=== PATIENT | female | born 2000 | race Caucasian/White ===

== ENCOUNTER 2019-12-27 12:17 | Emergency (ER) | payer BC ==
[2019-12-27] MEDS ORDERED: LORazepam 2 MG/ML SDV IVPUSH ONE (13:05)
[2019-12-27] MEDS ORDERED: Sodium Chloride 0.9% 2.5 ML Syringe FLUSH PRN (13:05)
[2019-12-27] MEDS ORDERED: HYDROmorphone 1 MG/ML Syringe IVPUSH ONE (13:05)
[2019-12-27] MEDS ORDERED: Sodium Chloride 0.9% 10 ML Syringe FLUSH PRN (13:05)
[2019-12-27] MEDS ORDERED: Lactated Ringers 1,000 ML IV ONE ×2 (13:05→13:55)
[2019-12-27] MEDS ORDERED: Prochlorperazine 10 MG/2 ML SDV IVPUSH ONE (13:05)
--- NOTE | 2019-12-27 13:10 | EDM.PDOC ---
ED [facility] GENERAL MEDICAL PROBLEM - General Chief Complaint: Abdominal Pain Stated Complaint: ABDOMINAL PAIN Time Seen by Provider: 12/27/19 12:21 - History of Present Illness INITIAL COMMENTS - FREE TEXT/NARRATIVE: HISTORY AND PHYSICAL: History of present illness: This 27-year-old female presents emergency department complaining of abdominal pain that is in the right lower quadrant but actually diffusely throughout the whole abdomen. Most noticeable in the right lower quadrant. Mild nausea. No vomiting. No urinary symptoms. Patient reports that she drinks daily, 1/5 of fireball whiskey, also smokes 2 packs a day. She is been doing this for the last couple of years. Denies any sexual contacts. No vaginal discharge or bleeding. Rates her pain as moderate to severe. Review of systems: A 10-point review of systems, other than pertinent positives and negatives as stated per HPI, is otherwise negative. Past medical history: As per history of present illness and as reviewed below otherwise noncontributory. Surgical history: As per history of present illness and as reviewed below otherwise noncontributory. Social history: No reported history of drug or alcohol abuse. Family history: As per history of present illness and as reviewed below otherwise noncontributory. Physical exam: VITAL SIGNS: Reviewed. GENERAL: Moderate distress HEAD: No signs of head trauma. EYES: Pupils are equal. Extraocular motions intact. EARS: Hearing grossly intact. MOUTH: Oropharynx is normal. NECK: No adenopathy, no JVD. CHEST: Chest with clear breath sounds bilaterally. No wheezes, rales, or rhonchi. CARDIAC: Cardiac rate. Regular rhythm. No appreciable murmur. VASCULAR: Peripheral pulses normal and equal in all extremities. ABDOMEN: Soft, diffusely tender, no rebound or guarding, pain with percussion. MUSCULOSKELETAL: Good range of motion of all major joints. Extremities without clubbing, cyanosis or edema. NEUROLOGIC EXAM: Alert and oriented x 3. No focal sensory or motor deficits. Speech normal. Follows commands. Minimal hand tremor PSYCHIATRIC: Mood normal. SKIN: No rash or lesions. Initial Differential Diagnosis & Plan: The differential diagnosis would include appendicitis, cholecystitis, pyelonephritis, pancreatitis, mesenteric infarction, diverticulitis, small bowel obstruction, volvulus, and ACS. Suspect that this is pancreatitis. Given the focal abdominal pain I will obtain a CT abdomen pelvis to rule out appendicitis. Patient does have withdrawal symptoms if she does not drink. She has not drink since yesterday. I will draw an alcohol level and give initial dose of Ativan. High likelihood for admission. Definitive disposition and diagnosis as appropriate pending reevaluation and review of above. abdominal pain Pain Score (Numeric/FACES): 8 - Related Data Allergies Allergy/AdvReac Type Severity Reaction Status Date / Time No Known Allergies Allergy Verified 12/27/19 12:45 Home Meds: Home Meds Diclofenac Potassium [Cataflam] 50 mg PO BID #60 tab 12/27/19 [Rx] Doxycycline [Vibramycin] 100 mg PO BID 7 Days #14 tab 12/27/19 [Rx] diazePAM [Valium] 5 mg PO Q6H #31 tablet 12/27/19 [Rx] metroNIDAZOLE [Flagyl] 500 mg PO Q8H 7 Days #21 tab 12/27/19 [Rx] Past Medical History HEENT History: Reports: Hard of Hearing Social & Family History - Tobacco Use Smoking Status *Q: Current Every Day Smoker Years of Tobacco use: 2 Packs/Tins Daily: 2 - Alcohol Use Days Per Week of Alcohol Use: 7 Number of Drinks Per Day: 10 Total Drinks Per Week: 70 - Recreational Drug Use Recreational Drug Use: No ED ROS GENERAL - Review of Systems Review Of Systems: See Below (Noted) ED EXAM, GI/ABD - Physical Exam Exam: See Below (Noted) EKG INTERPRETATION EKG Interpretation Comments: 12 lead EKG interpretation Obtained: December 27, 2019 at 1340 Rhythm: Sinus Rate: 99 [place]: Normal Intervals: Normal ST/T Segments: No acute ischemic changes Interpretation: Sinus Course - Vital Signs Text/Narrative:: 13:21 Spoke to Mom with the patients permission. Mom reports a temp of 103F last night. Pt forgot to tell us this info. Pt states she has had a fever for 1-2 days between 102 and 103F 1636 The patient is found to have hydrosalpinx. I spoke to Dr. Vero Santillan, PUBLIC DEFEND[employer], and she also recommended admission. She states that the patient is refusing to be admitted that we can send her home with doxycycline and Flagyl. I have already treated the patient with ceftriaxone which she also recommended. We will also give her NSAIDs. I am also concerned that the patient will have alcohol withdrawal syndrome at home and have treated her with benzodiazepines here and will also treat her with benzodiazepines as an outpatient. I normally, as is my customary practice, give Librium however this medication is not covered by her insurance. I have switched to diazepam. I feel that 1 to 2 tablets of 5 mg diltiazem every 6 hours should be adequate. More than this I feel the patient should return to the emergency department for help with her alcohol withdrawal. I spoke to the patient at length about her disease. I have told her multiple times during this visit she would likely be admitted. She had abnormal vital signs, symptoms of early alcohol withdrawal, and concerning fever with significant pathology on her CT scan and ultrasound. I have let her know that this can at times be life-threatening. She can also have serious morbidity and mortality like intrapelvic abscess, diverting colostomy, diverting ileostomy, bacteremia, and a myriad of other complications if this is not treated correctly including but not limited to and infertility. She voices understanding of this and would still like to leave AGAINST MEDICAL ADVICE. We have offered to try to make concessions to get her admitted and she continues to refuse. My diagnostic impression 1. Hydrosalpinx/PID 2. Acute febrile illness 3. Alcoholism with alcohol dependence 4. Mild alcohol withdrawal symptoms in the emergency department Last Recorded V/S: Last Vital Signs Temp 97.2 F 12/27/19 12:41 Pulse 84 12/27/19 16:25 Resp 17 12/27/19 16:25 BP 114/74 12/27/19 16:25 Pulse Ox 98 12/27/19 16:25 - Orders/Labs/Meds Orders: Active Orders 24 hr Category Date Time Status Cardiac Monitoring [RC] . DIRECTED Care 12/27/19 13:05 Active EKG Documentation Completion [RC] STAT Care 12/27/19 13:06 Active Pulse Oximetry [RC] ASDIRECTED Care 12/27/19 13:05 Active Transvaginal Non OB [US] Stat Exams 12/27/19 15:33 Taken CULTURE BLOOD [BC] Stat Lab 12/27/19 13:28 Received CULTURE BLOOD [BC] Stat Lab 12/27/19 13:42 Received Sodium Chloride 0.9% [Saline Flush] Med 12/27/19 13:05 Active 10 ml FLUSH ASDIRECTED PRN Sodium Chloride 0.9% [Saline Flush] Med 12/27/19 13:05 Active 2.5 ml FLUSH ASDIRECTED PRN Blood Culture x2 Reflex Set [OM.PC] Stat Oth 12/27/19 13:25 Ordered Saline Lock Insert [OM.PC] Stat Ot 12/27/19 13:05 Ordered Medication Orders Sodium Chloride (Saline Flush) 10 ml FLUSH ASDIRECTED PRN PRN Reason: Keep Vein Open Last Admin: 12/27/19 13:17 Dose: 10 ml Documented by: LIA Sodium Chloride (Saline Flush) 2.5 ml FLUSH ASDIRECTED PRN PRN Reason: Keep Vein Open Last Admin: 12/27/19 13:17 Dose: 2.5 ml Documented by: LIA Labs: Laboratory Tests 12/27/19 12/27/19 12/27/19 Range/Units 12:55 12:55 12:55 WBC 12.34 H (4.0-11.0) K/uL RBC 4.72 (4.30-5.90) M/uL Hgb 14.7 (12.0-16.0) g/dL Hct 42.7 (36.0-46.0) % MCV 90.5 (80.0-98.0) fL MCH 31.1 (27.0-32.0) pg MCHC 34.4 (31.0-37.0) g/dL RDW Std Deviation 42.9 (28.0-62.0) fl RDW Coeff of Chris 13 (11.0-15.0) % Plt Count 213 (150-400) K/uL MPV 10.00 (7.40-12.00) fL Neut % (Auto) 71.7 (48.0-80.0) % Lymph % (Auto) 16.5 (16.0-40.0) % [place] % (Auto) 11.6 (0.0-15.0) % Eos % (Auto) 0.0 (0.0-7.0) % Baso % (Auto) 0.2 (0.0-1.5) % Neut # (Auto) 8.9 H (1.4-5.7) K/uL Lymph # (Auto) 2.0 (0.6-2.4) K/uL [place] # (Auto) 1.4 H (0.0-0.8) K/uL Eos # (Auto) 0.0 (0.0-0.7) K/uL Baso # (Auto) 0.0 (0.0-0.1) K/uL Nucleated RBC % 0.0 /100WBC Nucleated RBCs # 0 K/uL INR 1.03 APTT 32.2 H (18.6-31.3) SEC VBG pH 7.41 (7.31-7.41) VBG pCO2 34 L (35-45) mmHG VBG pO2 37 (30-40) mmHG VBG HCO3 22 (22-30) mEq/L VBG Total CO2 19 L (41-51) mmol/L VBG Base Excess -2.5 (-3.0-3.0) Lactate (0.20-2.00) mmol/L Sodium (136-145) mmol/L Potassium (3.5-5.1) mmol/L Chloride (98-107) mmol/L Carbon Dioxide (21.0-32.0) mmol/L BUN (7.0-18.0) mg/dL Creatinine (0.6-1.0) mg/dL Est Cr Clr Drug Dosing mL/min Estimated GFR (MDRD) ml/min Glucose (74-106) mg/dL Calcium (8.5-10.1) mg/dL Magnesium (1.8-2.4) mg/dL Total Bilirubin (0.2-1.0) mg/dL AST (15-37) IU/L ALT (14-63) IU/L Alkaline Phosphatase (46-116) U/L Total Protein (6.4-8.2) g/dL Albumin (3.4-5.0) g/dL Globulin (2.6-4.0) g/dL Albumin/Globulin Ratio (0.9-1.6) Lipase (73-393) U/L HCG, Qual (NEG) Urine Color Urine Appearance Urine pH (5.0-8.0) Ur Specific [place] (1.001-1.035) Urine Protein (NEGATIVE) mg/dL Urine Glucose (UA) (NEGATIVE) mg/dL Urine Ketones (NEGATIVE) mg/dL Urine Occult Blood (NEGATIVE) Urine Nitrite (NEGATIVE) Urine Bilirubin (NEGATIVE) Urine Urobilinogen (<2.0) EU/dL Ur Leukocyte Esterase (NEGATIVE) Ethyl Alcohol mg/dL 12/27/19 12/27/19 12/27/19 Range/Units 12:55 12:55 12:55 WBC (4.0-11.0) K/uL RBC (4.30-5.90) M/uL Hgb (12.0-16.0) g/dL Hct (36.0-46.0) % MCV (80.0-98.0) fL MCH (27.0-32.0) pg MCHC (31.0-37.0) g/dL RDW Std Deviation (28.0-62.0) fl RDW Coeff of Chris (11.0-15.0) % Plt Count (150-400) K/uL MPV (7.40-12.00) fL Neut % (Auto) (48.0-80.0) % Lymph % (Auto) (16.0-40.0) % [place] % (Auto) (0.0-15.0) % Eos % (Auto) (0.0-7.0) % Baso % (Auto) (0.0-1.5) % Neut # (Auto) (1.4-5.7) K/uL Lymph # (Auto) (0.6-2.4) K/uL [place] # (Auto) (0.0-0.8) K/uL Eos # (Auto) (0.0-0.7) K/uL Baso # (Auto) (0.0-0.1) K/uL Nucleated RBC % /100WBC Nucleated RBCs # K/uL INR APTT (18.6-31.3) SEC VBG pH (7.31-7.41) VBG pCO2 (35-45) mmHG VBG pO2 (30-40) mmHG VBG HCO3 (22-30) mEq/L VBG Total CO2 (41-51) mmol/L VBG Base Excess (-3.0-3.0) Lactate 1.0 (0.20-2.00) mmol/L Sodium 136 (136-145) mmol/L Potassium 3.6 (3.5-5.1) mmol/L Chloride 101 (98-107) mmol/L Carbon Dioxide 23.5 (21.0-32.0) mmol/L BUN 5 L (7.0-18.0) mg/dL Creatinine 0.8 (0.6-1.0) mg/dL Est Cr Clr Drug Dosing 100.94 mL/min Estimated GFR (MDRD) > 60.0 ml/min Glucose 89 (74-106) mg/dL Calcium 9.3 (8.5-10.1) mg/dL Magnesium 2.0 (1.8-2.4) mg/dL Total Bilirubin 1.2 H (0.2-1.0) mg/dL AST 14 L (15-37) IU/L ALT 35 (14-63) IU/L Alkaline Phosphatase 95 (46-116) U/L Total Protein 8.0 (6.4-8.2) g/dL Albumin 3.8 (3.4-5.0) g/dL Globulin 4.2 H (2.6-4.0) g/dL Albumin/Globulin Ratio 0.9 (0.9-1.6) Lipase 41 L (73-393) U/L HCG, Qual NEGATIVE (NEG) Urine Color Urine Appearance Urine pH (5.0-8.0) Ur Specific [place] (1.001-1.035) Urine Protein (NEGATIVE) mg/dL Urine Glucose (UA) (NEGATIVE) mg/dL Urine Ketones (NEGATIVE) mg/dL Urine Occult Blood (NEGATIVE) Urine Nitrite (NEGATIVE) Urine Bilirubin (NEGATIVE) Urine Urobilinogen (<2.0) EU/dL Ur Leukocyte Esterase (NEGATIVE) Ethyl Alcohol <3 mg/dL 12/27/19 Range/Units 16:12 WBC (4.0-11.0) K/uL RBC (4.30-5.90) M/uL Hgb (12.0-16.0) g/dL Hct (36.0-46.0) % MCV (80.0-98.0) fL MCH (27.0-32.0) pg MCHC (31.0-37.0) g/dL RDW Std Deviation (28.0-62.0) fl RDW Coeff of Chris (11.0-15.0) % Plt Count (150-400) K/uL MPV (7.40-12.00) fL Neut % (Auto) (48.0-80.0) % Lymph % (Auto) (16.0-40.0) % [place] % (Auto) (0.0-15.0) % Eos % (Auto) (0.0-7.0) % Baso % (Auto) (0.0-1.5) % Neut # (Auto) (1.4-5.7) K/uL Lymph # (Auto) (0.6-2.4) K/uL [place] # (Auto) (0.0-0.8) K/uL Eos # (Auto) (0.0-0.7) K/uL Baso # (Auto) (0.0-0.1) K/uL Nucleated RBC % /100WBC Nucleated RBCs # K/uL INR APTT (18.6-31.3) SEC VBG pH (7.31-7.41) VBG pCO2 (35-45) mmHG VBG pO2 (30-40) mmHG VBG HCO3 (22-30) mEq/L VBG Total CO2 (41-51) mmol/L VBG Base Excess (-3.0-3.0) Lactate (0.20-2.00) mmol/L Sodium (136-145) mmol/L Potassium (3.5-5.1) mmol/L Chloride (98-107) mmol/L Carbon Dioxide (21.0-32.0) mmol/L BUN (7.0-18.0) mg/dL Creatinine (0.6-1.0) mg/dL Est Cr Clr Drug Dosing mL/min Estimated GFR (MDRD) ml/min Glucose (74-106) mg/dL Calcium (8.5-10.1) mg/dL Magnesium (1.8-2.4) mg/dL Total Bilirubin (0.2-1.0) mg/dL AST (15-37) IU/L ALT (14-63) IU/L Alkaline Phosphatase (46-116) U/L Total Protein (6.4-8.2) g/dL Albumin (3.4-5.0) g/dL Globulin (2.6-4.0) g/dL Albumin/Globulin Ratio (0.9-1.6) Lipase (73-393) U/L HCG, Qual (NEG) Urine Color YELLOW Urine Appearance CLEAR Urine pH 7.0 (5.0-8.0) Ur Specific [place] 1.010 (1.001-1.035) Urine Protein NEGATIVE (NEGATIVE) mg/dL Urine Glucose (UA) NEGATIVE (NEGATIVE) mg/dL Urine Ketones NEGATIVE (NEGATIVE) mg/dL Urine Occult Blood NEGATIVE (NEGATIVE) Urine Nitrite NEGATIVE (NEGATIVE) Urine Bilirubin NEGATIVE (NEGATIVE) Urine Urobilinogen 0.2 (<2.0) EU/dL Ur Leukocyte Esterase NEGATIVE (NEGATIVE) Ethyl Alcohol mg/dL Meds: Medications Generic Name Dose Route Start Last Admin Trade Name Freq PRN Reason Stop Dose Admin Sodium Chloride 10 ml 12/27/19 13:05 12/27/19 13:17 Saline Flush FLUSH 10 ml ASDIRECTED PRN Administration Keep Vein Open Sodium Chloride 2.5 ml 12/27/19 13:05 12/27/19 13:17 Saline Flush FLUSH 2.5 ml ASDIRECTED PRN Administration Keep Vein Open Discontinued Medications Generic Name Dose Route Start Last Admin Trade Name Freq PRN Reason Stop Dose Admin Doxycycline Hyclate 200 mg 12/27/19 16:20 Vibramycin PO 12/27/19 16:21 ONETIME ONE Hydromorphone HCl 1 mg 12/27/19 13:05 12/27/19 13:13 Dilaudid IVPUSH 12/27/19 13:06 1 mg ONETIME ONE Administration Lactated Ringer's 1,000 mls @ 999 mls/hr 12/27/19 13:05 12/27/19 13:00 Ringers, Lactated IV 12/27/19 14:05 999 mls/hr .BOLUS ONE Administration Ceftriaxone Sodium 2 gm/ 100 mls @ 200 mls/hr 12/27/19 13:25 12/27/19 14:43 Sodium Chloride IV 12/27/19 13:54 Not Given STAT ONE Lactated Ringer's 1,000 mls @ 999 mls/hr 12/27/19 13:55 12/27/19 13:59 Ringers, Lactated IV 12/27/19 14:55 999 mls/hr .BOLUS ONE Administration Ceftriaxone Sodium/Dextrose 2 50 mls @ 100 mls/hr 12/27/19 14:33 12/27/19 14:42 gm/ Premix IV 12/27/19 15:02 100 mls/hr ONETIME ONE Administration Ketorolac Tromethamine 15 mg 12/27/19 16:26 Toradol IVPUSH 12/27/19 16:27 ONETIME ONE Lorazepam 2 mg 12/27/19 13:05 12/27/19 13:16 Ativan IVPUSH 12/27/19 13:06 2 mg ONETIME ONE Administration Prochlorperazine Edisylate 10 mg 12/27/19 13:05 12/27/19 13:14 Compazine IVPUSH 12/27/19 13:06 10 mg ONETIME ONE Administration Departure - Departure Time of Disposition: 16:31 (Leaving AMA. DC now ) Disposition: Against Medical Advice 07 Clinical Impression: Alcoholism, Alcohol dependence, Hydrosalpinx, Pelvic inflammatory disease (PID) - Discharge Information *PRESCRIPTION DRUG MONITORING PROGRAM REVIEWED*: Yes *COPY OF PRESCRIPTION DRUG MONITORING REPORT IN PATIENT CHERIE: Yes Prescriptions: Diclofenac Potassium [Cataflam] 50 mg PO BID #60 tab metroNIDAZOLE [Flagyl] 500 mg PO Q8H 7 Days #21 tab diazePAM [Valium] 5 mg PO Q6H #31 tablet Doxycycline [Vibramycin] 100 mg PO BID 7 Days #14 tab Instructions: Alcohol Abuse and Dependence Information, Adult, Pelvic Inflammatory Disease, [id number] Referrals: PCP,None [Primary Care Provider] - Vero Santillan MD [Physician] - Forms: ED Department Discharge Additional Instructions: The following information is given to patients seen in the emergency department who are being discharged to home. This information is to outline your options for follow-up care. We provide all patients seen in our emergency department with a follow-up referral. The need for follow-up, as well as the timing and circumstances, are variable depending upon the specifics of your emergency department visit. If you don't have a primary care physician on staff, we will provide you with a referral. We always advise you to contact your personal physician following an emergency department visit to inform them of the circumstance of the visit and for follow-up with them and/or the need for any referrals to a consulting specialist. The emergency department will also refer you to a specialist when appropriate. This referral assures that you have the opportunity for follow-up care with a s pecialist. All of these measure are taken in an effort to provide you with optimal care, which includes your follow-up. Thank you for coming to the [facility] urgency department for yo ur care today. It was Dr. Obregon's pleasure to take care of you. You have hydrosalpinx/pelvic inflammatory disease. This is a serious medical condition and you are leaving AGAINST MEDICAL ADVICE. I have let you know and you have voiced understanding that you have a serious medical condition that could result in , intra-abdominal abscess, infertility, pelvic abscess, or other serious complications. Multiple times on your stay I have let you know that you should be admitted to the hospital. You are refusing to be admitted. If you change your mind please return immediately. Please take these medications as prescribed. Although we recommend intravenous antibiotics these may help to prevent bad consequences. Please stop drinking alcohol to excess and use the Valium, a alcohol withdrawal medicine, to help prevent alcohol withdrawal symptoms which can also be serious and life-threatening. Again I urged you to return to the emergency department and be admitted to the hospital. We are always happy to see you. Under all circumstances we always encourage you to contact your private physician who remains a resource for coordinating your care. When calling for follow-up care, please make the office aware that this follow-up is from your recent emergency room visit. If for any reason you are refused follow-up, please contact the [facility] Emergency Department at and asked to speak to the emergency department charge nurse. Critical Care Note - Critical Care Note Comments: Critical Care Note: The patient presented in critical status due to severe sepsis and pelvic inflammatory disease requiring intravenous antibiotics The patient required rapid exam, decision making, and frequent re-evaluations during their time in the Emergency Department. Total Critical Care time exclusive of all other billable procedure time provided by myself 77 minutes Sepsis Event Note (ED) - Evaluation Sepsis Screening Result: No Definite Risk - Focused Exam Vital Signs: Vital Signs Temp Pulse Resp BP Pulse Ox 12/27/19 16:25 84 17 114/74 98 12/27/19 14:44 85 15 105/67 97 12/27/19 14:08 96 16 104/63 96 12/27/19 12:41 97.2 F 99 16 108/64 99 - My Orders Last 24 Hours: My Active Orders 12/27/19 13:05 Cardiac Monitoring [RC] . DIRECTED Pulse Oximetry [RC] ASDIRECTED Sodium Chloride 0.9% [Saline Flush] 10 ml FLUSH ASDIRECTED PRN Sodium Chloride 0.9% [Saline Flush] 2.5 ml FLUSH ASDIRECTED PRN Saline Lock Insert [OM.PC] Stat 12/27/19 13:06 EKG Documentation Completion [RC] STAT 12/27/19 13:25 Blood Culture x2 Reflex Set [OM.PC] Stat 12/27/19 13:28 CULTURE BLOOD [BC] Stat 12/27/19 13:42 CULTURE BLOOD [BC] Stat 12/27/19 15:33 Transvaginal Non OB [US] Stat - Assessment/Plan Last 24 Hours: My Active Orders 12/27/19 13:05 Cardiac Monitoring [RC] . DIRECTED Pulse Oximetry [RC] ASDIRECTED Sodium Chloride 0.9% [Saline Flush] 10 ml FLUSH ASDIRECTED PRN Sodium Chloride 0.9% [Saline Flush] 2.5 ml FLUSH ASDIRECTED PRN Saline Lock Insert [OM.PC] Stat 12/27/19 13:06 EKG Documentation Completion [RC] STAT 12/27/19 13:25 Blood Culture x2 Reflex Set [OM.PC] Stat 12/27/19 13:28 CULTURE BLOOD [BC] Stat 12/27/19 13:42 CULTURE BLOOD [BC] Stat 12/27/19 15:33 Transvaginal Non OB [US] Stat
[2019-12-27] MEDS ORDERED: cefTRIAXone 2 GM in Sodium Chloride 0.9% 100 ML IV ONE (13:25)
[2019-12-27 13:34] LABS: BLOOD UREA NITROGEN,BUN 5 mg/dL (7.0-18.0); CARBON DIOXIDE,CO2 23.5 mmol/L (21.0-32.0); CHLORIDE,CL 101 mmol/L (98-107); GLUCOSE RANDOM 89 mg/dL (74-106); LIPASE 41 U/L (73-393); POTASSIUM,K 3.6 mmol/L (3.5-5.1); SODIUM,NA 136 mmol/L (136-145)
[2019-12-27] MEDS ORDERED: cefTRIAXone 2 GM in Premix Bag 1 BAG IV ONE (14:33)
--- NOTE | 2019-12-27 15:31 | CT ---
CT abdomen and pelvis Technique: Multiple axial sections were obtained from above the dome of the diaphragm inferiorly through the pubic symphysis. Intravenous contrast was utilized. No oral contrast was given. Comparison: No prior abdominal imaging. Findings: Visualized lung bases show nothing acute. Liver contains no focal abnormality. Spleen appears within normal limits. Adrenal glands show no nodule. Pancreas shows no discrete abnormality. Gallbladder contains no calcified gallstones. Kidneys show symmetric contrast enhancement without hydronephrosis or mass. Aorta shows no aneurysm. No retroperitoneal adenopathy or mesenteric abnormalities are seen. No pelvic mass or adenopathy is identified. Numerous cystic lesions are seen within the right side of the pelvis most likely due to multiple cysts within and enlarged right ovary. Questionable hydrosalpinx is also noted. This abnormality measures about 7.9 cm x 4.5 cm. Appendix is seen and appears to be normal in size. No surrounding inflammatory change is seen. Impression: 1. Appearance of and enlarged right ovary with multiple cysts. Equivocal hydrosalpinx. Recommend pelvic ultrasound to further evaluate. 2. Normal sized appendix. No inflammatory change is seen. No other acute finding is seen. Diagnostic code #9 This report was dictated in MDT
[2019-12-27] MEDS ORDERED: Doxycycline 100 MG Cap PO ONE (16:20)
[2019-12-27] MEDS ORDERED: Ketorolac 15 MG/ML SDV IVPUSH ONE (16:26)
--- NOTE | 2019-12-27 17:17 | US ---
INDICATION: Pelvic pain TECHNIQUE: Ultrasound pelvis transabdominal and transvaginal for better assessment or to better visualize the endometrium. Real-time sonographic images with spectral and color Doppler imaging of the ovaries were obtained. COMPARISON: CT abdomen pelvis from earlier today FINDINGS: Uterus: 6.0 x 3.2 x 2.5 cm. Normal echotexture of the myometrium. No masses. Multiple nabothian cysts on the uterine cervix. Endometrium: Transvaginal imaging was performed to better evaluate the endometrium. 4 mm in thickness. No sign of endometrial mass or fluid. Right ovary: 2.9 x 2.4 x 2.0 cm. No ovarian mass. There is a tubular structure in the right adnexal containing heterogeneous material. Normal arterial and venous blood flow. Left ovary: 2.8 x 2.7 x 2.1 cm. There is a cyst on the left ovary measuring 1.4 cm in diameter. Normal arterial and venous blood flow. Cul-de-sac: No significant free fluid. IMPRESSION: Tubular structure in the right adnexa may represent a hydrosalpinx or pyosalpinx. Recommend gynecology consultation. No ovarian torsion. Dictated by Merary Molina MD @ Dec 27 2019 5:16PM Signed by Dr. Merary Molina @ Dec 27 2019 5:16PM
[2019-12-27] MEDS ORDERED: Iopamidol 755 MG/ML 500 ML Multipack Bottle IVPUSH STA (18:47)
[2019-12-31 12:02] LABS: C.TRACHOMATIS BY TMA Negative (Negative); N.GONORRHOEAE BY TMA Negative (Negative)
== END 2019-12-27 17:17 | disposition left against medical advice (07) ==
LOC: MW.ED 12:17
DX: N73.9 Female pelvic inflammatory disease, unspecified (principal); N70.11 Chronic salpingitis; F10.239 Alcohol dependence with withdrawal, unspecified; F17.210 Nicotine dependence, cigarettes, uncomplicated; Z79.899 Other long term (current) drug therapy
CPT/HCPCS: 36415; 74177; 76830; 80053; 80307; 81003; 82803; 83605; 83690; 83735; 84703; 85025; 85610; 85730; 87040; 87491; 87591; 93005; 96365; 96375; 99291; A9270; J0696; J0780; J1170; J1885; J2060; J7120; Q9967; 99292

== ENCOUNTER 2021-06-14 12:03 | Emergency (ER) | payer BC | END 2021-06-14 14:08 | LOC: MW.ED 12:03 | DX: T16.9XXA Foreign body in ear, unspecified ear, initial encounter (principal); Z53.21 Procedure and treatment not carried out due to patient leaving prior to being seen by health care provider ==

== ENCOUNTER 2023-05-25 14:24 | Emergency (ER) | payer BC ==
[2023-05-25] MEDS ORDERED: Sodium Chloride 0.9% 10 ML Syringe FLUSH PRN (14:59)
[2023-05-25] MEDS ORDERED: Sodium Chloride 0.9% 2.5 ML Syringe FLUSH PRN (14:59)
[2023-05-25] MEDS ORDERED: Sodium Chloride 0.9% 1,000 ML IV ONE (15:02)
[2023-05-25 15:16] LABS: APPEARANCE,URINE CLOUDY; BILIRUBIN,URINE NEGATIVE (NEGATIVE); COLOR,URINE YELLOW; GLUCOSE,URINE NEGATIVE (NEGATIVE); KETONES,URINE TRACE mg/dL (NEGATIVE); LEUKOCYTE ESTERASE,URINE SMALL (NEGATIVE); NITRITE,URINE POSITIVE (NEGATIVE); OCCULT BLOOD,URINE NEGATIVE (NEGATIVE); PROTEIN,URINE NEGATIVE (NEGATIVE)
[2023-05-25] MEDS ORDERED: Lidocaine 4% 1 each Patch TOP STA (15:19)
[2023-05-25 15:26] LABS: BASOPHILS ABSOLUTE AUTO 0.03 K/uL (0.00-0.20); BASOPHILS PERCENT AUTO 0.5 % (0.0-1.0); EOSINOPHILS ABSOLUTE AUTO 0.09 K/uL (0.00-0.45); EOSINOPHILS PERCENT AUTO 1.4 % (0.0-6.0); HEMATOCRIT 42.1 % (37.0-47.0); HEMOGLOBIN 14.6 g/dL (12.0-16.0); IMMATURE GRAN ABSOLUTE AUTO 0.01 K/uL (0.00-0.05); IMMATURE GRAN PERCENT AUTO 0.2 % (0.0-0.4); LYMPHOCYTES ABSOLUTE AUTO 3.17 K/uL (1.00-4.80); LYMPHOCYTES PERCENT AUTO 48.4 % (24.0-44.0); MEAN CORPUSCULAR HGB CONC 34.7 g/dL (32.0-36.0); MEAN CORPUSCULAR VOLUME 89.4 fL (83.0-99.0); MEAN PLATELET VOLUME 9.8 fL (9.4-12.3); MONOCYTES ABSOLUTE AUTO 0.74 K/uL (0.00-0.80); MONOCYTES PERCENT AUTO 11.3 % (0.0-8.0); NEUTROPHILS ABSOLUTE AUTO 2.51 K/uL (1.80-7.70); NEUTROPHILS PERCENT AUTO 38.2 % (41.0-71.0); PLATELET COUNT,PLT 193 K/uL (150-400); RED BLOOD CELL COUNT 4.71 M/uL (4.10-5.30); WHITE BLOOD CELL COUNT,WBC 6.55 K/uL (3.9-11.3)
[2023-05-25 15:30] LABS: BACTERIA,URINE MANY (NEGATIVE); EPITHELIAL CELLS,URINE MANY (NONE-FEW)
[2023-05-25 15:37] LABS: INR 1.02 (0.86-1.11); PTT,PARTIAL THROMBOPLSTIN TIME 27.9 SEC (23.9-30.7)
[2023-05-25] MEDS ORDERED: Ketorolac 30 MG/ML SDV IVPUSH ONE (15:37)
[2023-05-25 16:00] LABS: A/G RATIO 1.3 (0.9-1.6); ALANINE AMINOTRANSFERASE,ALT 14 IU/L (14-63); ALKALINE PHOSPHATASE 79 U/L (46-116); ASPARTATE AMNIOTRANSFERASE,AST 5 IU/L (15-37); BILIRUBIN TOTAL 0.7 mg/dL (0.2-1.0); BLOOD UREA NITROGEN,BUN 14 mg/dL (7.0-18.0); CALCIUM 9.2 mg/dL (8.5-10.1); CARBON DIOXIDE,CO2 29.1 mmol/L (21.0-32.0); CHLORIDE,CL 104 mmol/L (98-107); CREATININE 1.1 mg/dL (0.6-1.0); EST CRCL DRUG DOSING (CG) 68.69 mL/min; GLUCOSE RANDOM 83 mg/dL (74-106); LIPASE 14 U/L (16-77); MAGNESIUM 1.9 mg/dL (1.8-2.4); PROTEIN TOTAL,TP 7.2 g/dL (6.4-8.2); SODIUM,NA 140 mmol/L (136-145)
[2023-05-25 16:01] LABS: ESTIMATED GFR 72 mL/min (>60)
== END 2023-05-25 17:12 | disposition left against medical advice (07) ==
LOC: MW.ED 14:24
DX: M25.551 Pain in right hip (principal); N39.0 Urinary tract infection, site not specified; F19.10 Other psychoactive substance abuse, uncomplicated; F17.210 Nicotine dependence, cigarettes, uncomplicated
CPT/HCPCS: 36415; 80053; 81001; 81025; 83690; 83735; 84484; 85025; 85610; 85730; 87086; 93005; 96361; 96374; 99283; A9270; J1885; J3490; J7030; 87088; 87186; 93010; 99284

== ENCOUNTER 2023-07-01 01:39 | Emergency (ER) | payer BC ==
[2023-07-01] MEDS ORDERED: Naloxone 0.4 MG/ML SDV IVPUSH PRN (01:57)
[2023-07-01] MEDS ORDERED: Ondansetron 4 MG/2 ML SDV IVPUSH ONE (01:57)
[2023-07-01] MEDS ORDERED: Sodium Chloride 0.9% 10 ML Syringe FLUSH PRN (01:57)
[2023-07-01] MEDS ORDERED: Sodium Chloride 0.9% 2.5 ML Syringe FLUSH PRN (01:57)
[2023-07-01] MEDS ORDERED: Morphine 4 MG/ML Syringe IVPUSH ONE (01:57)
[2023-07-01 02:12] LABS: BASOPHILS ABSOLUTE AUTO 0.04 K/uL (0.00-0.20); BASOPHILS PERCENT AUTO 0.5 % (0.0-1.0); EOSINOPHILS ABSOLUTE AUTO 0.06 K/uL (0.00-0.45); EOSINOPHILS PERCENT AUTO 0.8 % (0.0-6.0); HEMATOCRIT 41.6 % (37.0-47.0); HEMOGLOBIN 14.4 g/dL (12.0-16.0); IMMATURE GRAN ABSOLUTE AUTO 0.01 K/uL (0.00-0.05); IMMATURE GRAN PERCENT AUTO 0.1 % (0.0-0.4); LYMPHOCYTES ABSOLUTE AUTO 3.65 K/uL (1.00-4.80); LYMPHOCYTES PERCENT AUTO 47.7 % (24.0-44.0); MEAN CORPUSCULAR HEMOGLOBIN 30.8 pg (28.0-32.0); MEAN CORPUSCULAR HGB CONC 34.6 g/dL (32.0-36.0); MEAN CORPUSCULAR VOLUME 88.9 fL (83.0-99.0); MEAN PLATELET VOLUME 9.9 fL (9.4-12.3); MONOCYTES ABSOLUTE AUTO 0.86 K/uL (0.00-0.80); MONOCYTES PERCENT AUTO 11.2 % (0.0-8.0); NEUTROPHILS ABSOLUTE AUTO 3.04 K/uL (1.80-7.70); NEUTROPHILS PERCENT AUTO 39.7 % (41.0-71.0); PLATELET COUNT,PLT 232 K/uL (150-400); RED BLOOD CELL COUNT 4.68 M/uL (4.10-5.30); WHITE BLOOD CELL COUNT,WBC 7.66 K/uL (3.9-11.3)
[2023-07-01 02:28] LABS: APPEARANCE,URINE CLOUDY; BILIRUBIN,URINE NEGATIVE (NEGATIVE); COLOR,URINE YELLOW; GLUCOSE,URINE NEGATIVE (NEGATIVE); KETONES,URINE NEGATIVE (NEGATIVE); LEUKOCYTE ESTERASE,URINE NEGATIVE (NEGATIVE); NITRITE,URINE POSITIVE (NEGATIVE); OCCULT BLOOD,URINE NEGATIVE (NEGATIVE); PH,URINE 5.5 (5.0-8.0); PROTEIN,URINE NEGATIVE (NEGATIVE); UROBILINOGEN,URINE 0.2 EU/dL (<2.0)
[2023-07-01 02:30] LABS: BACTERIA,URINE 4+ (NEGATIVE); EPITHELIAL CELLS,URINE MANY (NONE-FEW); MUCUS,URINE LIGHT (NONE-MOD); RBC,URINE 0-2 (0-2/HPF)
[2023-07-01 02:43] LABS: A/G RATIO 1.3 (0.9-1.6); ALANINE AMINOTRANSFERASE,ALT 17 IU/L (14-63); ALKALINE PHOSPHATASE 69 U/L (46-116); ASPARTATE AMNIOTRANSFERASE,AST 27 IU/L (15-37); BILIRUBIN TOTAL 0.8 mg/dL (0.2-1.0); BLOOD UREA NITROGEN,BUN 17 mg/dL (7.0-18.0); CALCIUM 9.7 mg/dL (8.5-10.1); CHLORIDE,CL 103 mmol/L (98-107); CREATININE 1.1 mg/dL (0.6-1.0); GLUCOSE RANDOM 79 mg/dL (74-106); LIPASE 12 U/L (16-77); POTASSIUM,K 4.1 mmol/L (3.5-5.1); PROTEIN TOTAL,TP 7.1 g/dL (6.4-8.2); SODIUM,NA 139 mmol/L (136-145)
[2023-07-01 02:50] LABS: ESTIMATED GFR 72 mL/min (>60); HCG QUANTITATIVE < 1.0 mIU/mL
== END 2023-07-01 03:23 | disposition left against medical advice (07) ==
LOC: MW.ED 01:39
DX: R10.9 Unspecified abdominal pain (principal); N39.0 Urinary tract infection, site not specified
CPT/HCPCS: 36415; 76830; 80053; 81001; 83690; 84484; 84702; 85025; 85379; 96374; 96375; 99284; J2270; J2405; J3490